=== PATIENT | female | born 1960 ===

== ENCOUNTER 2018-02-07 14:29 | Emergency (ER) | payer OTHER ==
[2018-02-07 15:15] VITALS: TEMP 98.5
--- NOTE | 2018-02-07 15:59 | C.PDOC ---
History Of Present Illness 57 y/o F c PMHx HTN p/w episode of lightheadedness, pallor, and diaphoresis. Patient states it began shortly after she took a blood pressure medication by accident. She intended to take 2 of her BP medications and a pain medication that she was prescribed. However, she accidentally mistook an additional BP medication for the pain medication, thereby taking 3 blood pressure medications at once. She currently denies any complaints, chest pain, dyspnea, vomiting, or any other problems. Time Seen by Provider: 02/07/18 15:14 Chief Complaint (Nursing): Dizziness/Lightheaded Past Medical History Vital Signs: Last Vital Signs Temp 98.5 F 02/07/18 14:39 Pulse 66 02/07/18 14:39 Resp 14 02/07/18 14:39 BP 96/60 L 02/07/18 14:39 Pulse Ox 99 02/07/18 14:39 - Medical History PMH: HTN, Hyperlipidemia Family History: States: No Known Family Hx - Social History Hx Alcohol Use: No Hx Substance Use: No - Immunization History Hx Tetanus Toxoid Vaccination: No Hx Influenza Vaccination: No Hx Pneumococcal Vaccination: No Review Of Systems Except As Marked, All Systems Reviewed And Found Negative. Constitutional: Negative for: Fever Cardiovascular: Negative for: Chest Pain Physical Exam - Physical Exam Additional Physical Exam Comments: Gen: NAD Head: NC/AT Eyes: PERRL ENT: MMM Neck: Supple Chest: No tenderness CV: Regular rate Lungs: CTA b/l Abd: Soft, NT Back: No CVA tenderness Extremities: No edema Skin: No rash Neuro: Alert, no focal deficit ED Course And Treatment O2 Sat by Pulse Oximetry: 99 Medical Decision Making Medical Decision Making: On arrival, patient was pale and hypotensive. Patient was monitored in ED for 1.5 hours and she returned to baseline with normal blood pressure and states she feels well. Discharged home. Disposition - Disposition Referrals: Diana Cordero MD [Medical Doctor] - Disposition: HOME/ ROUTINE Disposition Time: 16:01 Condition: STABLE Instructions: Medication Safety, Adult - Clinical Impression Clinical Impression: Hypotension due to medication
[2018-02-07 16:19] VITALS: BP 129/81; PULSE 87; RESP 16; O2SAT 98
--- NOTE | 2018-02-10 14:40 | CARD ---
APPROVED REPORT EKG Measurement Heart [id number] <Conclusion> Normal sinus rhythm Nonspecific T wave abnormality Abnormal ECG
== END 2018-02-07 16:29 | disposition home or self-care (01) ==
LOC: C.ER 14:29
DX: I95.2 Hypotension due to drugs (principal)